=== PATIENT | male | born 1995 | race Caucasian/White ===

== ENCOUNTER 2017-02-19 16:34 | Emergency (ER) | payer OTHER ==
--- NOTE | ~2017-02-19 | CR181 ---
[facility] A Service of [facility] & [facility] RADIOLOGY TEXT RESULTS PATIENT: AL GRACE LOCATION: [facility] : 95 UNIT #: [id number] AGE: [address]: Fabiola Gonzalez SEX: M ORDER DR: [id number] [facility] [address] [place], [place] [address] [id number] E MR#: [id number] Acc #: [id number] NAME: AL GRACE : 1995 SEX: M STUDY DATE/TIME: 02/19/2017 16:57 UNIT: [facility] ROOM: STUDY DESCRIPTION: CR Lumbar Spine 2 or 3 Views Attending Physician: Fabiola Gonzalez Pa-C Ordering Physician: Fabiola Gonzalez Pa-C Primary Care Physician: Primary Care Physician No MEDICAL IMAGING REPORT This report is preliminary unless electronic signature is present EXAM Lumbar spine, 02/19 INDICATIONS Low back pain after falling at work today. FINDINGS AP and lateral projections of the lumbar segment show good mineralization of both anterior and posterior elements. They are all anatomically normal without indication of fracture, dislocation, or malignant change of a sclerotic or lytic type. There is no congenital defect noted. The sacroiliac joints are normal. IMPRESSION Normal lumbar spine. Dictated by... Baldomero Prajapati Jr., M.D. THIS IS AN ELECTRONICALLY VERIFIED REPORT Baldomero Prajapati Jr., M.D. at 02/20/2017 1:41 PM YFN/peggy TD: 02/20/2017 09:38 JOB #: [id number] MEDICAL IMAGING REPORT Page 1 of 1 COPY
--- NOTE | ~2017-02-19 | CR243 ---
[facility] A Service of [facility] & [facility] RADIOLOGY TEXT RESULTS PATIENT: AL GRACE LOCATION: [facility] : 95 UNIT #: [id number] AGE: [address]: Fabiola Gonzalez SEX: M ORDER DR: [id number] [facility] [address] [place], [place] [address] [id number] E MR#: [id number] Acc #: [id number] NAME: AL GRACE : 1995 SEX: M STUDY DATE/TIME: 02/19/2017 16:57 UNIT: [facility] ROOM: STUDY DESCRIPTION: CR Thoracic Spine 3 Views Attending Physician: Fabiola Gonzalez Pa-C Ordering Physician: Fabiola Gonzalez Pa-C Primary Care Physician: No Primary Care Physician MEDICAL IMAGING REPORT This report is preliminary unless electronic signature is present EXAM Thoracic spine 02/19 INDICATION Mid-back pain today after falling at work. FINDINGS 3 views of the thoracic spine are compared with 09/24/2013. Heart appears enlarged. Followup with a chest x-ray recommended. There is thoracic dextroscoliosis measuring about 11 degrees. No compression fractures are seen, and there is no subluxation on the lateral views. IMPRESSION 1. Scoliosis. No acute findings in the thoracic spine. 2. Cardiomegaly. Followup with a chest x-ray is recommended. Dictated by... Baldomero Prajapati Jr., M.D. THIS IS AN ELECTRONICALLY VERIFIED REPORT Baldomero Prajapati Jr., M.D. at 02/20/2017 1:41 PM SAMK/shweta TD: 02/20/2017 11:18 JOB #: [id number] MEDICAL IMAGING REPORT Page 1 of 1 COPY
[~2017-02-19 16:34] MED LIST: ADDERALLXR PO; BENZONATATE PO; MEDROL4 MG/DOSE- PO; NAPROSYN500 MG PO; NO MEDICATIONS; ROBAXIN500 MG PO; VOLTAREN50 MG PO
== END 2017-02-19 19:07 | disposition home or self-care (01) ==
LOC: CED 16:34
DX: S30.0XXA Contusion of lower back and pelvis, initial encounter (principal); F90.9 Attention-deficit hyperactivity disorder, unspecified type; F17.290 Nicotine dependence, other tobacco product, uncomplicated; W01.0XXA Fall on same level from slipping, tripping and stumbling without subsequent striking against object, initial encounter; Y92.69 Other specified industrial and construction area as the place of occurrence of the external cause
CPT/HCPCS: 72072; 72100; 99284

== ENCOUNTER 2017-06-29 14:27 | Emergency (ER) | payer OTHER ==
--- NOTE | ~2017-06-29 | CR72 ---
[facility]. [facility] A Service of [facility] & [facility] RADIOLOGY TEXT RESULTS PATIENT: AL GRACE LOCATION: [facility] : 95 UNIT #: [id number] AGE: [address]: JYOTI MORA SEX: M ORDER DR: [id number] [place] [id number] E MR#: [id number] Acc #: [id number] NAME: AL GRACE : 1995 SEX: M STUDY DATE/TIME: 06/29/2017 14:56 UNIT: [facility] ROOM: STUDY DESCRIPTION: CR Chest Single View Portable Attending Physician: Jyoti Mora A.P.R.N. Ordering Physician: Jyoti Mora A.P.R.N. Primary Care Physician: No Primary Care Physician MEDICAL IMAGING REPORT This report is preliminary unless electronic signature is present. EXAM Frontal chest 06/29/2017. INDICATIONS 21-year-old male with chest pain and cough since this morning. Cannot talk. Throat complaint. Causes chest pain. Tobacco abuse. TECHNIQUE Frontal chest compared with 09/24/2013. FINDINGS Cardiac silhouette unremarkable. The vascularity is normal. Lung volumes are low with bronchovascular crowding and the lungs are clear. IMPRESSION 1. Low-volume image, otherwise negative frontal chest. 2. Not mentioned above, there is redemonstration of thoracic upper levoscoliosis. Dictated by... Naeem Ramos M.D. THIS IS AN ELECTRONICALLY VERIFIED REPORT Naeem Ramos M.D. at 06/30/2017 2:22 PM SHAUNA/justa TD: 06/30/2017 09:33 JOB #: [id number] MEDICAL IMAGING REPORT Page 1 of 1
== END 2017-06-29 15:07 | disposition home or self-care (01) ==
LOC: SED 14:27
DX: J02.9 Acute pharyngitis, unspecified (principal); Z87.891 Personal history of nicotine dependence
CPT/HCPCS: 71010; 99283